=== PATIENT | female | born 1950 | race Caucasian/White ===

== ENCOUNTER 2020-09-02 10:15 | Emergency (ER) | payer MEDICARE, OTHER ==
[2020-09-02 10:35] LABS: HEMOGLOBIN 12.8 gm/dl (12.3-15.3); RED BLOOD COUNT 4.12 M/UL (4.00-5.10); WHITE BLOOD COUNT 7.2 K/UL (4.5-11.0)
[2020-09-02 10:58] LABS: BUN/CREATININE RATIO 11 (0-10)
[2020-09-02] MEDS ORDERED: AUGMENTIN 875-1 EACH PO (13:05)
== END 2020-09-02 13:29 | disposition home or self-care (01) ==
LOC: ER1 10:15
PROVIDERS: Family Medicine
DX: J18.9 Pneumonia, unspecified organism (principal); I48.91 Unspecified atrial fibrillation; I11.9 Hypertensive heart disease without heart failure; F41.9 Anxiety disorder, unspecified; Z79.899 Other long term (current) drug therapy
CPT/HCPCS: 71045; 80053; 82550; 82553; 83874; 83880; 84484; 85025; 93005; 99284